=== PATIENT | male | born 1985 | race Two or more races ===

== ENCOUNTER 2024-01-05 02:52 | Emergency (ER) | payer MEDICAID, SELFPAY ==
[2024-01-05 02:52] VITALS: BMI 34.7
[2024-01-05 03:05] VITALS: BP 146/91; PULSE 62; RESP 20; TEMP 36.7; O2SAT 97
--- NOTE | 2024-01-05 03:17 | XR_ITS ---
Examination: CT abdomen and pelvis without contrast. Coronal 3-D reconstructions. Sagittal 2-D reconstructions. Date and time of exam:January 05, 2024 at 0423 hrs. Indications: Right flank pain radiating to the back beginning 3 hours ago Comparison: December 29, 2016 CTDI: vol (mGy): 9.43 DLP: (mGycm): 598 Technique: Axial images of the abdomen have been obtained, 3 mm slice thickness Intravenous contrast material has not been administered. Low dose protocols were performed. One or more of the following dose reduction techniques were used; automated exposure control, adjustment of the mA and/or KV according to patient size, use of iterative reconstruction technique. Findings: No focal liver or splenic lesions No gallstones No pancreatic mass Mild right hydronephrosis secondary to 7 mm right ureterovesical junction calculus Normal appendix Small lymph nodes in the right lower mesentery 10 mm fat-containing umbilical hernia Contracted urinary bladder No prostatomegaly Impression: Mild right hydronephrosis secondary to 7 mm distal right ureterovesical junction calculus
--- NOTE | 2024-01-05 03:22 | PD.EDBACK ---
ED Back Injury Pain RME/HPI General Chief Complaint: Back Pain/Injury Stated Complaint: BACK PAIN Time Seen by Provider: 01/05/24 03:17 Arrival date/time: 01/05/24 02:52 38M with history of testicular cancer (remission s/p surgery) presents to ED with several hours of R flank pain, N/V and dysuria. Limitations: no limitations Related Data Previous Rx's ?Medication ?Instructions ?Recorded HYDROCODONE BITARTRATE/APAP 1 tab PO Q4-6HRPRN #15 tabs 10/23/12 (Vicodin 5/500*) ondansetron 4 mg disintegrating 4 mg PO Q8H PRN nausea and 01/05/24 tablet vomiting #30 tabs tamsulosin 0.4 mg capsule (Flomax) 0.4 mg PO QDAY #30 caps 01/05/24 Allergies Allergy/AdvReac Type Severity Reaction Status Date / Time NKA* Allergy Uncoded 01/05/24 02:55 Review of Systems Review of Systems Systems Reviewed: All systems reviewed, normal except as documented Constitutional Constitutional: Reports system reviewed and no additional complaints, except as documented, Denies fever(s) and Denies headache(s) ENT Ears, Nose, Mouth, and Throat: Denies disequilibrium and Denies headache(s) Cardiovascular Cardiovascular: Reports system reviewed and no additional complaints, except as documented, Denies chest pain and Denies dyspnea Respiratory Respiratory: Reports system reviewed and no additional complaints, except as documented, Denies cough and Denies dyspnea Gastrointestinal Gastrointestinal: Reports system reviewed and no additional complaints, except as documented, Denies abdominal pain, Denies nausea and Denies vomiting Genitourinary Genitourinary: Reports as per HPI, Reports dysuria and Reports flank pain Neurologic Neurologic: Reports system reviewed and no additional complaints, except as documented, Denies confusion, Denies disequilibrium and Denies headache(s) Psychiatric Psychiatric: Denies confusion Past Medical History Social History SMOKING STATUS: Never smoker ED Exam General Limitations: Present no limitations General appearance: Present alert and in no apparent distress Head Head exam: Present atraumatic Eye Eye exam: Present normal appearance, PERRL and EOMI ENT ENT exam: Present normal exam, normal oropharynx and mucous membranes moist Neck Neck exam: Present normal inspection, full ROM and trachea midline Chest Chest inspection: Present normal inspection and symmetric chest wall rise Respiratory Respiratory exam: Present normal lung sounds bilaterally Cardiovascular Cardiovascular exam: Present regular rate, normal rhythm and normal heart sounds Abdominal Exam Abdominal exam: Present soft and normal bowel sounds Extremities Exam Extremities exam: Present normal inspection and full ROM Back Exam Back exam: Present normal inspection and full ROM Neurological Exam Neurological exam: Present alert, oriented X3 and CN II-XII intact Psychiatric Psychiatric exam: Present normal affect and normal mood Skin Skin exam: Present warm, dry, intact and normal color Course Quality Measures none Orders Category Date Time Status CT abdomen pelvis wo con Stat Exams 01/05/24 03:17 Taken CBC Stat Lab 01/05/24 03:29 Completed CMP [Comprehensive Metabolic Panel] Stat Lab 01/05/24 03:29 Completed Lipase Stat Lab 01/05/24 03:29 Completed Urinalysis, C/S if Indicated Stat Lab 01/05/24 03:26 Completed Ketorolac Inj [Toradol Inj] Med 01/05/24 03:17 Discontinued 60 mg IM X1 ONE Ondansetron Odt [Zofran Odt] Med 01/05/24 03:17 Discontinued 4 mg PO X1 ONE Tamsulosin HCl [Flomax] Med 01/05/24 04:55 Discontinued 0.4 mg PO X1 ONE Vital Signs Vital signs: Vital Signs Temperature 98.0 F 01/05/24 03:05 Pulse Rate 62 01/05/24 03:05 Respiratory Rate 20 01/05/24 03:05 Blood Pressure 146/91 H 01/05/24 03:05 Pulse Oximetry (%) 97 01/05/24 03:05 Oxygen Delivery Method Room Air 01/05/24 03:05 O2 at 97% on RA and WNLs Back Pain / Injury MDM Narrative MDM Narrative:: 38M with history of testicular cancer (remission s/p surgery) presents to ED with several hours of R flank pain, N/V and dysuria. Physical exam reveals no flank tenderness. Patient is afebrile, calm, and alert. CT reveals 7 mm R kidney stone with mild hydro, but normal Cr. UA clean besides blood. CMP normal. Very minimal leukocytosis. Meds and travel counselor automobile [employer] given. Patient data External records reviewed:: [facility] previous records Clinical information provided by:: patient Social determinants that could affect healthcare access:: none Patient has the following chronic illnesses:: testicular cancer How is presenting disease/condition affected by chronic disease/condition?: exacerbated by Evaluation data The following diagnostics were reviewed and interpreted by me:: lab results and radiology exam(s) Lab and/or radiology exams considered but not ordered:: ordered Interpretation Summary: above Medications / Prescriptions Medications or Prescriptions considered but not ordered:: ordered Medication administrations:: Medication Administration History Discontinued Medications Ketorolac Tromethamine (Ketorolac Inj 60 Mg/2 Ml Vial) 60 mg IM X1 ONE Stop: 01/05/24 03:18 Last Admin: 01/05/24 03:28 Dose: 60 mg Documented By: OA Ondansetron HCl (Ondansetron Odt 4 Mg Tabrap) 4 mg PO X1 ONE; Protocol Stop: 01/05/24 03:18 Last Admin: 01/05/24 03:28 Dose: 4 mg Documented By: OA Tamsulosin HCl (Tamsulosin Hcl 0.4 Mg Capsule) 0.4 mg PO X1 ONE Stop: 01/05/24 04:56 above Consultations Consultation(s) initiated? (list below): No Diagnosis Differential diagnosis back pain/injury: lumbar radiculopathy, sciatica, strain of lumbar region, renal colic, pyelonephritis, thoracic back pain, AAA, discitis and other (kidney stone, pyelo/UTI) Most likely diagnosis given after review of the tests above:: kidney stone Admission Indicated Admission indicated?: not indicated Admission Request Was there a request for admission?: No Disposition Plan Disposition Plan: Discharge Discharge Attestation Discharge Attestation: The patient and all family members were given an opportunity to ask questions and understood the discharge instructions. Discharge instructions specifically effects, indications for sooner follow up or return to the emergency department, and the expected course of current diagnosis. Patient condition: Stable Discharge Plan Plan Patient Disposition: HOME (Self Care) Disposition Comment: Stable Prescriptions/Referrals Prescriptions/Med Rec: New tamsulosin [Flomax] 0.4 mg capsule 0.4 mg PO QDAY Qty: 30 0RF Rx Instructions: use until stone is passed ondansetron 4 mg tablet,disintegrating 4 mg PO Q8H PRN (Reason: nausea and vomiting) Qty: 30 0RF No Action HYDROCODONE BITARTRATE/APAP (Vicodin 5/500*) 1 TAB tablet 1 tab PO Q4-6HRPRN Qty: 15 0RF Problem List Clinical Impression: Kidney stone Patient/Caregiver Discharge Instructions Education Materials: ED Kidney Stone w/ Colic Additional Instructions: Please follow-up with PCP within 24-48 hours and return immediately if symptoms worsen. Ibuprofen/Tylenol can be used simultaneously for greater fever/pain control. If stronger meds are needed, see PCP who can also give urologist referral if symptoms persist. Print Language: Yakut Stand Alone Forms: Patient Portal Info Letter PA/DELMY Supervising Physician PA/DELMY Supervising Physician: Dr. Sadler
[2024-01-05] MEDS: KETOROLAC INJ 60 MG/2 ML VIAL IM (03:28)
[2024-01-05] MEDS: ONDANSETRON ODT 4 MG TABRAP PO (03:28)
[2024-01-05 03:35] LABS: Collection Type, Urine Clean Catch; WBC,Urine 0 /hpf (0-5)
[2024-01-05 03:37] LABS: Basophils % (Auto) 0 % (0-2.5); Eosinophils # (Auto) 0.1 Thou/mm3 (0.0-0.5); Eosinophils % (Auto) 1 % (0-10); Hemoglobin 13.6 g/dL (13.5-16.0); Immature Granulocytes % (Auto) 0 % (0-0); Immature Granulocytes Auto 0.02 Thou/mm3 (0.00-0.00); Lymphocytes # (Auto) 4.5 Thou/mm3 (1.0-4.8); Lymphocytes % (Auto) 54 % (10-50); Mean Corpuscular Hemoglobin 28.9 pg (25.0-35.0); Mean Corpuscular Volume 85 fL (80-100); Monocytes # (Auto) 0.6 Thou/mm3 (0.0-0.8); Monocytes % (Auto) 7 % (0-12); Neutrophils # (Auto) 3.1 Thou/mm3 (1.8-7.7); Neutrophils % (Auto) 37 % (37-80); Nucleated Red Blood Cell % 0 /100 WBC (0); Platelet Count 174 Thou/mm3 (140-440); RDW Standard Deviation 39.8 fL (35.1-43.9); Red Blood Count 4.71 Miln/mm3 (4.50-5.90); White Blood Count 8.3 Thou/mm3 (3.8-10.6)
[2024-01-05 03:44] LABS: Bilirubin,Urine Negative (Negative); Blood,Urine 3+ (Negative); Clarity,Urine Turbid (Clear/Hazy); Color,Urine Lt-Yellow (Lt Yel-Yel); Culture Indicated,Urine Not Indicated; Glucose, Urine Negative (Negative); Ketones,Urine Negative (Negative); Leukocyte Esterase,Urine Negative (Negative); Nitrite,Urine Negative (Negative); PH,Urine 5.5 (5.0-7.0); Protein,Urine Trace (Neg - Trace); RBC,Urine 73 /hpf (0-3); Specific Gravity,Urine 1.032 (1.001-1.035); Squamous Epithelial Cell,Urine < 1 /hpf (0-5); Urobilinogen,Urine Negative mg/dL (0.0-1.0)
[2024-01-05 04:02] LABS: Alanine Aminotransferase 23 U/L (10-49); Albumin, Serum 4.9 gm/dL (3.5-5.0); Alkaline Phosphatase 53 U/L (46-116); Anion Gap 8 (7-16); Aspartate Amino Transferase 24 U/L (0-34); BUN/Creatinine Ratio 15 Ratio (12-20); Bilirubin,Total 0.6 mg/dL (0.3-1.2); Blood Urea Nitrogen 19 mg/dL (9-23); Calcium 9.6 mg/dL (8.3-10.6); Calcium (Corrected) 9.6 mg/dL (8.5-10.1); Carbon Dioxide 24.6 mMol/L (20.0-31.0); Chloride 105 mMol/L (98-107); Creatinine (Component) 1.3 mg/dL (0.6-1.3); Estimated Creatinine Clearance 85.9 mL/min (>60); Globulin 2.5 gm/dL (2.3-3.5); Glucose 106 mg/dL (74-106); Lipase 35 U/L (12-53); Osmolality,Calculated 277 (275-295); Potassium 3.9 mMol/L (3.4-5.1); Sodium 138 mMol/L (136-145); Total Protein 7.4 gm/dL (5.7-8.2); eGFR > 60 See Note
--- NOTE | 2024-01-05 04:54 | PRELIM_ITS ---
CT scan of the abdomen and pelvis without intravenous contrast (axial sections with sagittal and rosario nal reformats) January 05, 2024 0423 hours Clinical History: R flank pain Comparison: No prior study is available for comparison at the time of interpretation Findings:Bibasilar dependent atelectasis i s present. A 7 mm obstructing calculus is seen at the right ureterovesical junction (image 223/305) c ausing mild right hydroureteronephrosis. There is no renal calculus.The liver, gallbladder, pancreas, spleen, left kidney and adrenals are unremarkable on this noncontrast study.No evidence of bowel obs truction. There is submucosal fatty infiltration of descending and sigmoid colon, likely related to p rior inflammation. The appendix is within normal limits. There is no mesenteric or retroperitoneal ad enopathy. The aorta is unremarkable. The urinary bladder is unremarkable. There is no free fluid or f ree air.The osseous structures are unremarkable.Impression:A 7 mm obstructing calculus at the right u reterovesical junction causing mild right hydroureteronephrosis. Report Electronically Signed By: Yamel Mathews 01/05/2024 4:52:49 AM [EST]
[2024-01-05] MEDS: TAMSULOSIN HCL 0.4 MG CAPSULE PO (05:04)
== END 2024-01-05 05:05 | disposition home or self-care (01) ==
LOC: SERX 06:37
PROVIDERS: Physician Assistant; Emergency Provider Emergency Medicine
DX: N20.0 Calculus of kidney (principal)
CPT/HCPCS: 36415; 74176; 80053; 81001; 83690; 85025; 96372; 99284; J1885; Q0162; A9270

== ENCOUNTER 2024-04-02 07:58 | Outpatient (RCR) | payer MEDICAID, SELFPAY | END 2024-04-11 23:59 | disposition home or self-care (01) | LOC: SCTC 07:58 | PROVIDERS: PCP Physician Assistant; Referring Provider Nurse Practitioner Family; Visit Provider Nurse Practitioner Family | DX: Z08 Encounter for follow-up examination after completed treatment for malignant neoplasm (principal); Z85.47 Personal history of malignant neoplasm of testis; Z90.79 Acquired absence of other genital organ(s); Z92.21 Personal history of antineoplastic chemotherapy | CPT/HCPCS: 99212; G0463 ==